=== PATIENT | male | born 1955 | race Caucasian/White ===

== ENCOUNTER 2021-07-20 12:42 | Emergency (ER) | payer MEDICARE, OTHER, SELFPAY ==
--- NOTE | ~2021-07-20 | XR_ITS ---
EXAMINATION: [id number] DATE: 07/20/2021 13:25 INDICATION: Right lateral chest pain. Chest injury. TECHNIQUE: An anteroposterior the chest and 2 views of the right ribs on 4 radiographs were obtained. COMPARISON: Chest 2 views 07/20/2014, chest CT 10/17/2015 FINDINGS: There is chronic marked elevation of right hemidiaphragm. There is mild atelectasis at the lung bases. No pleural effusion or pneumothorax. The heart size is normal. IMPRESSION: 1. No rib fracture. 2. Mild atelectasis at the lung bases. 3. Chronic marked elevation of right hemidiaphragm. Reviewed, dictated and finalized at location A.
[2021-07-20 12:52] VITALS: BP 150/66; PULSE 69; RESP 16; TEMP 36.4; O2SAT 98
--- NOTE | 2021-07-20 13:03 | ED.BACK ---
HPI - Back Pain/Injury General Chief Complaint: Back Pain/Injury Stated Complaint: Fall Injury/Back Pain Time Seen by Provider: 07/20/21 13:03 Source: patient Mode of arrival: ambulatory Limitations: no limitations History of Present Illness HPI Narrative: 65 yo M presents with c/o R sided mid back pain for 6 days. Pt states he was standing on running board of his truck while tryign to attack a magnetic light to top. The magnets released and he fell backwards against a wall. has been taking advil for pain. Thinks pain is improving some but wants to make sure he does not have a fracture. Ambulatory with steady gait. denies SOB. All systems reviewed and negative except as noted above. Related Data Home Medications Medication Instructions Recorded Confirmed amlodipine 10 mg PO DAILY 07/20/21 07/20/21 aspirin [Adult Low Dose Aspirin] 81 mg PO DAILY 07/20/21 07/20/21 atorvastatin 80 mg PO DAILY 07/20/21 07/20/21 losartan 100 mg PO DAILY 07/20/21 07/20/21 Allergies Allergy/AdvReac Type Severity Reaction Status Date / Time codeine Allergy Intermediate wires him Verified 07/20/21 13:05 up Review of Systems Review of Systems: CONSTITUTIONAL: Denies fever, chills, or sweats. EYES: Denies visual changes, redness, or discharge. ENT: Denies rhinorrhea, congestion, sore throat, or otalgia. CARDIOVASCULAR: Denies chest pain, palpitations, or edema. RESPIRATORY: Denies cough or dyspnea. GASTROINTESTINAL: Denies abdominal pain, nausea, vomiting, or diarrhea. GENITOURINARY: Denies dysuria or hematuria. SKIN: Denies rash or itching. MUSCULOSKELETAL: Reports right mid back pain. NEUROLOGIC: Denies headache, numbness, or weakness. PSYCHIATRIC: Denies anxiety or depression. All other systems reviewed are negative, except as documented in HPI. PMFSH Comments At time of signature, agree with nursing past medical, surgical, social and family history. There is no relevant family history pertinent to the presenting complaint. Exam Narrative: GENERAL: This is a well-nourished, well-developed patient, in no apparent distress. HEAD: normocephalic, atraumatic. EYES: PERRL. Sclera clear/white. Vision is grossly intact. EARS: External ears normal, auditory canals clear and without drainage, TMs normal without perforation. Hearing grossly intact. NOSE: External nose normal with no obvious nasal discharge, nares without redness, no rhinorrhea. THROAT: Mucous membranes moist, posterior pharynx clear. NECK: Neck supple, non-tender without lymphadenopathy, masses or thyromegaly. CARDIOVASCULAR: Regular rate and rhythm without murmurs, gallops, or rubs. RESPIRATORY: Clear to auscultation. Breath sounds equal bilaterally. No wheezes, rales, or rhonchi. GASTROINTESTINAL: Abdomen soft, non-tender, nondistended. Bowel sounds are active. No hepato-splenomegaly, or palpable masses. No guarding. SKIN: warm, Dry, intact with no suspicious lesions or rash, good texture and turgor. NEURO: awake, alert, and oriented to person, place and time. There were no obvious focal neurologic abnormalities. EXTREMITIES: No joint tenderness, effusion, or edema noted. No calf tenderness. Negative Homans sign bilaterally. BACK: Tenderness to right mid back with swelling. No bruising noted. No midline tenderness. No CVA tenderness. Back/Spine/Pelvis: Back/spine/pelvis image: 1. tenderness with swelling Course Course Level of Care: Express Care Visit Vital Signs Vital signs: Reviewed MDM - Back Pain/Injury MDM Narrative Medical decision making narrative: Patient is aware of diagnosis, understands and agrees to treatment plan. Anticipatory guidance given. Patient agrees to follow-up as directed and is aware of reasons to seek care at the emergency department. Portions of this record may have been created with voice recognition software Differential Diagnosis Differential diagnosis: Likely lumbar radiculopathy, strain of lumbar region and thoracic back pain Discha
== END 2021-07-20 13:46 | disposition home or self-care (01) ==
PROVIDERS: Emergency Provider Nurse Practitioner Family; PCP Internal Medicine
DX: S30.0XXA Contusion of lower back and pelvis, initial encounter (principal); W19.XXXA Unspecified fall, initial encounter; E78.00 Pure hypercholesterolemia, unspecified; I10 Essential (primary) hypertension
CPT/HCPCS: 71101; 99203; G0463

== ENCOUNTER 2022-08-17 11:02 | Emergency (ER) | payer MEDICARE, OTHER, SELFPAY ==
--- NOTE | ~2022-08-17 | XR_ITS ---
XR ankle LT min 3V 08/17/2022 11:23 Indication: Left ankle pain Procedure: 4 views left ankle Comparison: No prior studies for comparison. Findings: Ankle mortise intact. There is a small osteochondral defect medial aspect of the talar dome . There is polyarticular osteoarthritis. Normal mineralization. No acute fracture or traumatic malali gnment. Impression: 1: No acute fracture. 2: Moderate polyarticular osteoarthritis. 3: Small osteochondral defect medial aspect of the talar dome. Reviewed, dictated and finalized at location B. Impression: 1: No acute fracture. 2: Moderate polyarticular osteoarthritis. 3: Small osteochondral defect medial aspect of the talar dome.
[2022-08-17 11:08] VITALS: BP 133/64; PULSE 70; RESP 20; TEMP 36.4; O2SAT 99
--- NOTE | 2022-08-17 11:15 | ED.LOWEXIN ---
HPI - Extremity Injury (Lower) General Chief Complaint: Extremity Injury, Lower Stated Complaint: Left Ankle Injury Source: patient and RN notes reviewed History of Present Illness HPI Narrative: 58-year-old male presents to urgent care with complaints of a left medial ankle pain and swelling. Patient states 1 week ago a tripped in the rocks causing him to almost fall. Patient states he did not fall to the ground b/c he caught himself on a flagpole. Patient denies any numbness, tingling, or any other injuries including head injury or LOC. Denies any chest pain or shortness of breath. Patient has been taking Tylenol at without relief. Some parts of this dictation were generated by voice recognition software and may contain typographical and/or grammatical inaccuracies. Related Data Home Medications Medication Instructions Recorded Confirmed No Home Medications 08/17/22 08/17/22 Allergies Allergy/AdvReac Type Severity Reaction Status Date / Time codeine Allergy Intermediate wires him Verified 08/17/22 11:17 up Review of Systems Review of Systems: Pertinent positives and pertinent negatives per HPI. PMFSH Comments At the time of my signature, I reviewed and agree with the nursing past medical, surgical, social, and family history. There is no relevant family history pertinent to the patient complaint. Exam Narrative: GENERAL: This is a well-nourished, well-developed patient, in no apparent distress. HEAD: normocephalic, atraumatic. EYES: Sclera clear/white. Vision is grossly intact. EARS: External ears normal, auditory canals clear and without drainage. Hearing grossly intact. NOSE: External nose normal with no obvious nasal discharge, nares without redness, no rhinorrhea. THROAT: Mucous membranes moist, posterior pharynx clear. NECK: Neck supple, non-tender without lymphadenopathy, masses or thyromegaly. CARDIOVASCULAR: Regular rate RESPIRATORY: No respiratory distress. GASTROINTESTINAL: Abdomen soft, non-tender, nondistended. Bowel sounds are active. No hepato-splenomegaly, or palpable masses. No guarding. SKIN: warm, intact with no suspicious lesions or rash, good texture and turgor. NEURO: awake, alert, and oriented to person, place and time. There were no obvious focal neurologic abnormalities. EXTREMITIES: No clubbing or cyanosis. Left medial ankle edematous and mildly tender. Course Course Level of Care: Express Care Visit Vital Signs Vital signs: Vital Signs Temperature 97.5 F L 08/17/22 11:08 Pulse Rate 70 08/17/22 11:08 Respiratory Rate 20 08/17/22 11:08 Blood Pressure 133/64 08/17/22 11:08 Pulse Oximetry 99 08/17/22 11:08 Oxygen Delivery Room Air 08/17/22 11:08 Temperature 97.5 F L 08/17/22 11:08 Pulse Rate 70 08/17/22 11:08 Respiratory Rate 20 08/17/22 11:08 Blood Pressure 133/64 08/17/22 11:08 Pulse Oximetry 99 08/17/22 11:08 Oxygen Delivery Room Air 08/17/22 11:08 Reviewed MDM - Extremity Injury (Lower) MDM Narrative Medical decision making narrative: Use the RICE method at home. May take ibuprofen (Advil, Motrin, Aleve) and/or Tylenol if needed. Follow up with locator specialist. Patient was advised to stay off this ankle as much as possible until he is seen by Ortho MD. Patient states he has crutches at home. Differential Diagnosis Differential diagnosis: Likely ankle sprain and strain, ankle fracture and other (Dislocation) Imaging Data Radiologist's impression: [address] [place] [id number] XRay Report Signed Patient: Karri Main : 1955 MR#: [id number] Age/Sex: 66 / M Acct:[id number] Loc: [facility]? ? ADM Date: 08/17/22Attending Dr: Ordering Physician: Paige Cummins APRN Date of Service: 08/17/22 Procedure(s): XR ankle LT min 3V Accession Number(s): [id number] cc: Omer, Scott Sprague MD; Paige Cummins APRN~ XR ankle L
== END 2022-08-17 11:50 | disposition home or self-care (01) ==
PROVIDERS: Emergency Provider Nurse Practitioner Family; PCP Internal Medicine
DX: S93.402A Sprain of unspecified ligament of left ankle, initial encounter (principal); S96.912A Strain of unspecified muscle and tendon at ankle and foot level, left foot, initial encounter; W18.40XA Slipping, tripping and stumbling without falling, unspecified, initial encounter; E78.00 Pure hypercholesterolemia, unspecified; I10 Essential (primary) hypertension
CPT/HCPCS: 73610; 99213; G0463

== ENCOUNTER 2024-12-25 11:15 | Emergency (ER) | payer MEDICARE, SELFPAY ==
--- NOTE | ~2024-12-25 | XR_ITS ---
CHEST RADIOGRAPH, PA AND LATERAL CLINICAL HISTORY: cough, pain with deep inspiration. . COMPARISON: 07/20/2014. Reference is also made to a CT examination of the chest dated 10/17/2015 TECHNIQUE: PA and lateral views of the chest. FINDINGS Redemonstration of right hemidiaphragmatic elevation with adjacent compressive atelectasis. The remainder of the lungs are clear. The cardiac mediastinal silhouette is unremarkable. IMPRESSION: Elevation of the right hemidiaphragm with adjacent compressive atelectasis. Reviewed, dictated and finalized at location A.
[2024-12-25 11:23] VITALS: BP 137/57; PULSE 63; RESP 20; TEMP 36.7; O2SAT 98
--- NOTE | 2024-12-25 11:37 | ECG_ITS ---
Test Date: 2024-12-25 11:42:36 Measurements Intervals [place] Rate: 59 P: 42 FL: 184 QRS: -3 QRSD: 85 T: 61 QT: 401 QTc: 398 Interpretive Statements SINUS BRADYCARDIA BASELINE ARTIFACT- V6 BORDERLINE ECG No previous ECG available for comparison Electronically Signed On 12-25-2024 11:51:42 CDT by Patrice Freeman D.O.
--- NOTE | 2024-12-25 11:46 | ED.URI ---
HPI - URI/Sore Throat General Chief Complaint: Upper Respiratory Infection Stated Complaint: cough, left lung pain, chest pain Time Seen by Provider: 12/25/24 11:45 Source: patient and RN notes reviewed Mode of arrival: ambulatory Limitations: no limitations History of Present Illness HPI Narrative: 69-year-old male presents Express Care complaining of upper respiratory symptoms for approximately 2-3 weeks. Patient says symptoms started with sinus congestion and a cough he stated most sinus symptoms result every continues to have chest congestion and a cough. She also reports pain with inspiration primarily on his left side. Patient denies any chest pain with exertion or chest pain at rest. Patient has a history right collapsed lung history of a pneumothorax. Patient has been taking [id number] Mucinex with some relief. Patient denies any fevers, body aches, chills, nausea, vomiting, shortness of breath, or any other symptoms. Related Data Home Medications ?Medication ?Instructions ?Recorded ?Confirmed ?Last Taken ?Type amlodipine .ROUTE 12/25/24 Unknown History aspirin 81 mg tablet,delayed 81 mg PO DAILY 12/25/24 Unknown History release (Adult Low Dose Aspirin) atorvastatin .ROUTE 12/25/24 Unknown History losartan .ROUTE 12/25/24 Unknown History Allergies Allergy/AdvReac Type Severity Reaction Status Date / Time codeine Allergy Intermediate wires him Verified 12/25/24 11:30 up Review of Systems Review of Systems: CONSTITUTIONAL: Denies fever, chills, or sweats. EYES: Denies visual changes, redness, or discharge. ENT: Denies rhinorrhea, sore throat, or otalgia. Positive for congestion CARDIOVASCULAR: Denies chest pain, chest pain with exertion, lightheadedness, dizziness palpitations, or edema. RESPIRATORY: Positive for cough and pain with inspiration. Negative for dyspnea or wheezing. GASTROINTESTINAL: Denies abdominal pain, nausea, vomiting, or diarrhea. GENITOURINARY: Denies dysuria or hematuria. SKIN: Denies rash or itching. MUSCULOSKELETAL: Denies back pain, joint pain, or myalgia. NEUROLOGIC: Denies headache, numbness, or weakness. PSYCHIATRIC: Denies anxiety or depression. All other systems reviewed are negative, except as documented in HPI. [facility] Comments At the time of my signature, I reviewed and agree with the nursing past medical, surgical, social, and family history. There is no relevant family history pertinent to the patient complaint. Exam Narrative: GENERAL: This is a well-nourished, well-developed adult, in no apparent distress. They are non ill-appearing, nontoxic appearing. HEAD: normocephalic, atraumatic. EYES: Sclera clear/white. Conjunctiva normal. Vision is grossly intact. Extraocular movements intact EARS: External ears normal, auditory canals clear and without drainage, TMs normal without perforation. Hearing grossly intact. NOSE: External nose normal with no obvious nasal discharge, nasal turbinates erythematous bilaterally, no rhinorrhea. THROAT: Mucous membranes moist, posterior pharynx clear, without erythema or swelling. Uvula midline. Postnasal drip present. NECK: Neck supple, non-tender without lymphadenopathy, masses or thyromegaly. CARDIOVASCULAR: Regular rate and rhythm without murmurs, gallops, or rubs. RESPIRATORY: Clear to auscultation. Breath sounds equal bilaterally. No wheezes, rales, or rhonchi. Respiratory rate normal, respiratory effort nonlabored, no respiratory distress SKIN: warm, Dry, intact with no suspicious lesions or rash, good texture and turgor. NEURO: awake, alert, and oriented to person, place and time. There were no obvious focal neurologic abnormalities. EXTREMITIES: No joint tenderness, effusion, or edema noted. BACK: Nontender without deformity. No CVA tenderness. Course Course Emergency Course: Portions of this record may have been created with voice recognition software Level of Care: Express Care Visit Vital Signs Vital signs: Vital Signs Temperature 98.1 F 12/25/24 11:23 Pulse Rate 63 12/25/24 11:23 Respiratory Rate 20 12/25/24 11:23 Blood Pressure 137/57 L 12/25/24 11:23 Pulse Oximetry 98 12/25/24 11:23 Oxygen Delivery Room Air 12/25/24 11:23 Temperature 98.1 F 12/25/24 11:23 Pulse Rate 63 12/25/24 11:23 Respiratory Rate 20 12/25/24 11:23 Blood Pressure 137/57 L 12/25/24 11:23 Pulse Oximetry 98 12/25/24 11:23 Oxygen Delivery Room Air 12/25/24 11:23 Reviewed MDM - URI/Sore Throat MDM Narrative Medical decision making narrative: EKG sinus bradycardia with no ischemic findings. Chest x-ray reveals elevation right hemidiaphragm adjacent compressive atelectasis patient is a chronic finding for this patient. Otherwise no other acute cardiopulmonary findings. [place] heart score 1. Low suspicion for CAD. Pain is reproducible with deep inspiration. Patient is chest pain-free currently. Patient likely has a bacterial sinusitis given length of symptoms. Will prescribe Augmentin. Discussed physical exam findings. Advised supportive measures and signs/symptoms to go to the ER. Pt is appropriate for outpt treatment and f/u. Differential Diagnosis Differential diagnosis: Likely upper respiratory infection, sinusitis, bronchitis and pharyngitis Imaging Data Radiologist's impression: ITS Impressions Chest X-Ray 12/25/24 12:06 IMPRESSION: Elevation of the right hemidiaphragm with adjacent compressive atelectasis. ECG Data EKG #1: ECG completion date: 12/25/24 ECG completion time: 11:42 Prior ECG tracings: not available for review EKG Interpretation: normal rate, bradycardia, sinus rhythm, no ST changes, normal QRS, normal QT, NL axis and no acute changes Critical Care Time Critical Care Time Critical Care Time: No Discharge Plan Discharge Clinical Impression: Sinusitis Qualifiers: Sinusitis location: unspecified location Chronicity: acute Recurrence: non-recurrent Qualified Code(s): J01.90 - Acute sinusitis, unspecified Patient Disposition: Home Condition: Stable Instructions: Antibiotic Form, Sinusitis (ED) Additional Instructions: Your EKG shows no signs of a heart attack. Your Chest x-ray shows no acute cardiopulmonary findings. Take the antibiotics as directed and complete the course even if you start to feel better. You may use a Neti pot saline rinse 3 times a day with lukewarm distilled water You may take Tylenol or ibuprofen as needed for pain or fevers. Fall instruction on the bottle. Use a humidifier or vaporizer at night. Drink plenty of water. 8-10 glasses per day. Use flonase 2 times per day for 5 days then as needed Take mucinex 2 times per day and be sure to take with 8oz of water. Follow up with Primary provider in 3-5 days Please go to the ER if he develops any shortness of breath, difficulty breathing, chest pains, nausea, vomiting, left arm pain, jaw pain, chest pain with exertion, worsening symptoms, or any other concerns Patient Language: Malaysian Prescriptions: New amoxicillin-pot clavulanate 875-125 mg tablet 1 tablet PO Q12H 7 Days Qty: 14 0RF No Action losartan .ROUTE atorvastatin .ROUTE amlodipine .ROUTE aspirin [Adult Low Dose Aspirin] 81 mg tablet,delayed release (DR/EC) 81 mg PO DAILY Follow-up/Referrals: Omer,Scott Sprague MD [Primary Care Provider] - Time of Disposition: 12:21
--- OUTSIDE RECORDS SUMMARY | 2024-12-25 12:50 | XMS_ITS | Clinical Summary ---
Author Organization [facility] Building A Address [address] [place] [address] Care Team Providers Care Blood Bank Coordinator Name Role Phone Scott Tello MD Primary Care Provider + Allergies Active Allergy Reactions Criticality Noted Date Comments Codeine Anaphylaxis High 02/06/2014 Medications atorvastatin (LIPITOR) 80 mg tablet Take 80 mg by mouth daily with breakfast. 8 Active amLODIPine (NORVASC) 10 mg tablet Take 10 mg by mouth daily with breakfast. 8 Active irbesartan (AVAPRO) 150 mg tablet Take 150 mg by mouth daily with breakfast. 8 Active cholecalciferol (cholecalcifero l) 400 unit capsule Take 400 Units by mouth daily with breakfast. Active ofloxacin (OCUFLOX) 0.3 % ophthalmic solution Administer 1 drop into the right eye 4 (four) times a day. 4 times a day (when you wake up, lunch, dinner, bedtime) 5 mL 9 Active Additional Information Patient not taking.Reported on 07/11/2018 ofloxacin (OCUFLOX) 0.3 % ophthalmic solution Administer 1 drop into the left eye 4 (four) times a day. 4 times a day (when you wake up, lunch, dinner, bedtime) 5 mL 9 Active Additional Information Patient not taking.Reported on 07/11/2018 prednisoLONE acetate (PRED FORTE) 1 % ophthalmic suspension Administer 1 drop into both eyes 2 (two) times a day. 5 mL 9 Active Additional Information Patient not taking.Reported on 08/15/2018 Active Problems Problem Noted Date Diagnosed Date Pseudophakia, left eye 05/17/2018 Overview (05/17/2018): Added automatically from request for surgery [id number] Pseudophakia, right eye 05/12/2018 BMI 33.0-33.9,adult 04/24/2018 Assessment & Plan (04/24/2018 10:20 AM PARENT TRAINER): Weight loss counseling provided for 10 min. Lifestyle change and diet modification were discussed with the patient in detail. Nocturnal hypoxia 12/15/2017 Assessment & Plan (12/15/2017 7:48 PM CDT): He has all clinical features of obstructive sleep apnea including retrognathia and Mallampati score class 4. He also reports loud snoring. We will perform an screening over an overnight oximetry. 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 Chest x-ray again has shown elevated right hemidiaphragm. This is a chronic process and it was detected for the 1st time about 10 years ago. PFT has shown mild restrictive lung disease which could be due to diaphragm dysfunction. Six min walk test has shown no desaturation. no further investigation or intervention is recommended at this time. A follow- up visit was arranged in 3 months. Exertional shortness of breath 12/01/2017 Assessment & Plan (11/06/2018 7:01 AM CDT): He reports significant improvement in exertional shortness of breath. He denies any cough, chest pain or shortness of breath. He denies any cough or chest pain. PFT in December 2017 has shown: 1. No evidence of asthma. 2. Mild restrictive lung disease secondary to elevated right hemidiaphragm. Assessment & Plan (04/24/2018 10:19 AM PARENT TRAINER): He reports significant improvement in exertional shortness of breath. He denies any cough, chest pain or shortness of Breath. PFT has shown: 1. No evidence of asthma. 2. Mild restrictive lung disease secondary to elevated right hemidiaphragm. We will repeat PFT in 1 year. Assessment & Plan (12/22/2017 5:43 PM CDT): Today he reports a moderate improvement in exertional shortness of breath. He denies any cough or chest pain. Pulmonary function testing has shown no evidence of asthma. Mild restrictive lung disease is due to elevated right hemidiaphragm. No more investigation or intervention is recommended at this time. We will follow the patient in 3 months. Assessment & Plan (12/01/2017 5:07 PM CDT): Could be due to multiple pulmonary problems We will proceed with pulmonary function testing, 6 min walk test, CBC and BMP. Chest x-ray also was arranged. He may also need respiratory muscle strength testing and echocardiogram. Elevated diaphragm 12/01/2017 Assessment & Plan (11/06/2018 7:02 AM CDT): Chest x-ray has shown elevated right hemidiaphragm. He has had this problem for many years. It was detected for the 1st time about 10 years ago on chest x-ray. Assessment & Plan (04/24/2018 10:21 AM PARENT TRAINER): Chest x-ray has shown elevated right hemidiaphragm. He has had this problem for many years. It was detected for the 1st time about 10 years ago on chest x-ray. No further investigation is needed at this time. Will repeat PFT and chest x-ray in 1 year. Assessment & Plan (12/15/2017 7:51 PM CDT): Follow-up chest x-ray again has shown elevated right hemidiaphragm which is an old problem. It was detected for the 1st time about 10 years ago on chest x-ray. Assessment & Plan (12/01/2017 5:06 PM CDT): Chest CT has shown elevation of the right hemidiaphragm. Cause has not been identified yet. It was detected about 10 years ago on chest x-ray. We will repeat chest x-ray in two views. Obstructive sleep apnea 12/01/2017 Assessment & Plan (12/22/2017 5:54 PM CDT): The patient has all clinical features of obstructive sleep apnea including Loud snoring, daytime fatigue, retrognathia and Mallampati score class 4. We will perform an overnight oximetry to rule out nocturnal hypoxia. We will also consider sleep study to rule out SCAR. Assessment & Plan (12/01/2017 5:05 PM CDT): He has all clinical features of obstructive sleep apnea. He has retrognathia and Mallampati score is class 4. He also gives a history of loud snoring. He needs sleep study as an outpatient in the future. Non-seasonal allergic rhinitis 12/01/2017 Assessment & Plan (11/06/2018 7:02 AM CDT): We will continue with azelastine nasal spray. Assessment & Plan (04/24/2018 10:15 AM PARENT TRAINER): We will discontinue fluticasone nasal spray because of side effects. Today he was started on azelastine nasal spray. Assessment & Plan (12/15/2017 7:49 PM CDT): We will continue with fluticasone nasal spray. Assessment & Plan (12/01/2017 4:59 PM CDT): He has postnasal drip and nasal congestion consistent with rhinitis. He was started on fluticasone nasal spray. 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 cataract of right eye 05/13/2018 07/11/2018 Overview (05/13/2018): Added automatically from request for surgery [id number] Mixed type age-related cataract, left eye 05/12/2018 08/15/2018 Lesion of eyelid 04/15/2015 08/15/2018 Surgical History Surgery Date Site/Laterality Comments KNEE ARTHROSCOPY 05/10/2014 - 05/09/2015 Arthroscopy knee KNEE SURGERY Right Knee Surgery prior to 2014 OK TUBE THORACOSTOMY INCLUDE S WATER SEAL 05/10/2011 - 05/09/2012 Chest Tube Insertion - (Added by Conv) FINGER SURGERY multiple TOE SURGERY 08/19/2016 Left arthroplasty L 2nd toe CATARACT EXTRACTION W/ INTRAOCULAR LENS IMPLANT 06/02/2018 Right CARDIAC CATHETERIZATION 05/10/2013 - 05/09/2014 mild to mod non-obstructive CAD Medical History Medical History Date Comments Hyperlipidemia Hyperlipidemia Personal history of other di seases of the musculoskeletal system and connective tissue History of gout - (Added by TW Conv) 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 - (Added by TW Conv) Hyperuricemia without signs of inflammatory arthritis and tophaceous disease Hyperuricemia - (Added by TW Conv) History of recurrent pneumonia H istory of pneumonia - (Added by TW Conv) Pneumothorax Pneumothorax, le ft - (Added by Conv) Personal history of healed t raumatic fracture History of fracture of rib - (Added by TW Conv) Hypertension CAD (coronary artery disease) pe r OSH record review: mild to mod non-obstructive CAD 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 Epistaxis s/p cauterizatio n 05/2018 Family History Medical History Relation Name Comments Bone cancer Brother 1 Bone cancer - ( Added by Conv) Cancer Brother 1 Diabetes Brother 1 Hypertension Brother 1 Emphysema Brother 2 Family history of emphysema - (Added by Conv) Cancer Father Cataracts Father Coronary artery disease Father CABG Hypertension Father Prostate cancer Father Cancer -pros gordillo; Cause of : Cancer -prostate/Family history of prostate cancer - (Added by Conv) Stroke Father fatal Emphysema Mother Family history of emphysema - (Added by TW Conv) Heart failure Mother Congestive hea rt failure; Cause of : Congestive heart failure Relation Name Status Comments Brother 1 Brother 2 Father Mother Social History Tobacco Use Types Packs/Day Years Used Date Smoking Tobacco: Never Smokeless Tobacco: Never Alcohol Use Standard Drinks/Week Comments No 0 (1 standard drink = 0.6 oz pur e alcohol) Sex and Gender Information Value Date Recorded Sex Assigned at Not on file Legal Sex Male 11:56 PM PARENT TRAINER Gender Identity Not on file Sexual Orientation Not on file 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 Not on file Not on file Not on file Obstetrics History Last Filed Vital Signs Vital Sign Reading Time Taken Comments Blood Pressure 116/70 10/24/2018 8:01 AM CDT Pulse 54 10/24/2018 8:01 AM CDT Temperature 36.5 C (97.7 F) 10/24/2018 8:01 AM CDT Respiratory Rate 19 10/24/2018 8:01 AM CDT Oxygen Saturation 96% 10/24/2018 8:01 AM CDT Inhaled Oxygen Concentration - - Weight 115.7 kg (255 lb) 10/24/2018 8:01 AM CDT Height 185.4 cm (6' 1) 10/24/2018 8:01 AM CDT Body Mass Index 33.64 10/24/2018 8:01 AM CDT Plan of Treatment Not on file Medical Devices Implanted Type Area Skein Washer Device Identifier Shelf Expiration Date Model / Serial / Lot [employer] Zcb00 20.5d Tecnis Protec 6mm 13mm 1 Piece Anterior Aspheric Square Edge Uv - [id number] - [id number] Implanted:Qty: 1 on 06/02/2018 by Kylie Chandler MD PhD at [facility] Lens Right: Eye [employer] [id number] 04/03/2021 [id number] 20.5D / [id number] / [employer] [id number] 19.5 Tecnis Optiedge 6mm 13mm 3 Piece Anterior Aspheric Monofocal Uv - [id number] - [id number] Implanted:Qty: 1 on 06/10/2018 by Kylie Chandler MD PhD at [facility] Lens Left: Eye [employer] [id number] 05/05/2022 [id number] 19.5 / [id number] / Description:[id number] 19.5D Insurance [facility] MEDICARE Inktd [facility] MEDICARE Care Teams Blood Bank Coordinator Relationship Specialty Start Date End Date Scott Tello MD PCP - General Internal Medicine 11/22/17
--- OUTSIDE RECORDS SUMMARY | 2024-12-25 12:50 | XMS_ITS | Clinical Summary ---
Author Organization [facility] Address [address] [place] [address] Phone Care Team Providers Care Leadite Man Name Role Phone Scott Tello MD Primary Care Provider [phone] Micha Ríos MD Unavailable [phone] Kylie Chandler MD Unavailable [phone] Isaias Andre DPM Unavailable [phone] Tha Bolden MD Unavailable [facility] yoder APRN, [employer] Unavailable Jayant Sosa MD Unavailable [phone] Allergies Active Allergy Reactions Criticality Noted Date Comments Codeine Anaphylaxis 02/06/2014 Indomethacin Other (see Comments) 12/19/2018 Serum bilirubin raised Medications amLODIPine (NORVASC) 10 MG Tablet Take by mouth every morning. Active atorvastatin (LIPITOR) 80 MG Tablet Take by mouth daily. Active aspirin EC 81 MG Tablet Delayed Response TAKE ONE TABLET BY MOUTH ONCE A DAY 01/25/2019 Active losartan (COZAAR) 100 MG Tablet every morning. 10/19/2019 Active Active Problems Problem Noted Date Diagnosed Date Venous insufficiency of both lower extremities 0 12/01/2023 Sensorineural hearing loss, bilateral 07/12/2023 Carotid stenosis, asymptomatic, left 07/01/2020 Amaurosis fugax 07/01/2020 BMI 33.0-33.9,adult 04/24/2018 Overview (08/16/2018): Last Assessment & Plan: Weight loss counseling provided for 10 min. Lifestyle change and diet modification were discussed with the patient in detail. Nonrheumatic aortic valve insufficiency 04/22/20 Non-rheumatic mitral regurgitation 04/22/2018 Non-seasonal allergic rhinitis 12/01/2017 Overview (08/16/2018): Last Assessment & Plan: We will discontinue fluticasone nasal spray because of side effects. Today he was started on azelastine nasal spray. Obstructive sleep apnea 12/01/2017 Overview (08/16/2018): Last Assessment & Plan: The patient has all clinical features of obstructive sleep apnea including Loud snoring, daytime fatigue, retrognathia and Mallampati score class 4. We will perform an overnight oximetry to rule out nocturnal hypoxia. We will also consider sleep study to rule out SCAR. Mixed hyperlipidemia 12/24/2014 Diverticulosis 05/10/2014 Elevated hemidiaphragm Overview (04/24/2015): Right--paralyzed on sniff test Hypertension, essential ASHD (arteriosclerotic heart disease) Gout Resolved Problems Problem Noted Date Diagnosed Date Resolved Date Colon polyps 03/14/2024 07/13/2024 Immunizations Immunization Administration Dates Next Due COVID-19, MRNA, LNP-S, BIVAL ENT , PFIZER, 30 MCG/0.3 ML (12+ Y/O) 02/23/2022 Covid-19, Mrna, Lnp-s, Pf, 30 Mcg/0.3 Ml Dose (P fizer) 06/29/2020,06/09/2020 Covid-19, Mrna, Lnp-s, Pf, 3 0 Mcg/0.3 Ml Dose, Cristiano-sucrose (Pfizer tom top) 09/01/2021 Influenza Vaccine greater than 3 yrs 02/08/2019 Influenza Vaccine, Quadrivalent, PF 04/14/2018 Influenza, High-dose, Quadrivalent 02/15/2023, Influenza, Quadrivalent, Adjuvanted 02/23/2022,1 06/11/2020 Influenza, high-dose, trivalent, PF 01/24/2024 Pneumococcal PCV, Unspecified Formulation 2011 Pneumococcal Vaccine - 13 Valent 06/27/2019,08/0 10/2016 Pneumococcal Vaccine Adult - 23 Valent Pneumococcal conjugate PCV20 , polysaccharide [id number] conjugate, adjuvant, PF 02/10/2024 RSV, Bivalent, Protein Subun it Rsvpref, Diluent Reconstit (Abrysvo) 01/04/2024 TDAP Vaccine 06/11/2017 Zoster Vaccine Recombinant 03/21/2024,01/04/2024 Family History Medical History Relation Name Comments Cancer Brother 1 Liver Diabetes Brother 1 Cancer Brother 2 Bone Diabetes Brother 2 Heart Attack Father Stroke Father Heart Disease Paternal Uncle Relation Name Status Comments Brother 1 Brother 2 Father Mother Paternal Uncle Social History Tobacco Use Types Packs/Day Years Used Date Smoking Tobacco: Never Smokeless Tobacco: Never Tobacco Cessation:Counseling Given: Not Answered Alcohol Use Standard Drinks/Week Comments No 0 (1 standard drink = 0.6 oz pur e alcohol) [facility] Voltariities Answer Date Recorded In the past 12 months has [employer], gas, oil, or water [employer] threatened to shut off services in your home? Patient declined 07/11/2024 Social Connection and Isolation Panel Answer Date Recorded In a typical week, how many times do you talk on the phone with family, friends, or neighbors? Patient declined 07/11/2024 How often do you get togethe r with friends or relatives? Patient declined 07/11/2024 How often do you attend mu-ism or pentecostalism serv ices? Patient declined 07/11/2024 Do you belong to any clubs o r organizations such as mu-ism groups, unions, fraternal or athletic groups, or school groups? Patient declined 07/11/2024 How often do you attend meet ings of the clubs or organizations you belong to? Patient declined 07/11/2024 Are you , , di vorced, , never , or living with a partner? Patient declined 07/11/2024 AUDIT-C Answer Date Recorded Q1: How often do you have a drink containing alc ohol? Patient declined 07/11/2024 Q2: How many drinks containi ng alcohol do you have on a typical day when you are drinking? Patient declined 07/11/2024 Q3: How often do you have si x or more drinks on one occasion? Patient declined 07/11/2024 Overall Financial Resource Strain (CARDIA) Answe r Date Recorded How hard is it for you to pa y for the very basics like food, housing, medical care, and heating? Patient declined 07/11/2024 PHQ-2 Answer Date Recorded Total Score - Questions 1-9 0 10/2024 [facility] - Occupational Stress Questionnaire Answer Date Recorded Do you feel stress - tense, restless, nervous, or anxious, or unable to sleep at night because your mind is troubled all the time - these days? Patient declined 07/11/2024 Exercise Vital Sign Answer Date Recorde d On average, how many days pe r week do you engage in moderate to strenuous exercise (like a brisk walk)? 7 days On average, how many minutes do you engage in exercise at this level? Patient declined 07/11/2024 Hunger Vital Sign Answer Date Recorded Within the past 12 months, y ou worried that your food would run out before you got the money to buy more. Patient declined Within the past 12 months, t he food you bought just didn't last and you didn't have money to get more. Patient declined 08/2024 PRAPARE - Transportation Answer Date Re corded In the past 12 months, has l ack of transportation kept you from medical appointments or from getting medications? Patient declined 07/11/2024 In the past 12 months, has l ack of transportation kept you from meetings, work, or from getting things needed for daily living? Patient declined 07/11/2024 Housing Stability Vital Sign Answer Christiano e Recorded In the last 12 months, was t here a time when you were not able to pay the mortgage or rent on time? Patient declined 07/12/19 25 Number of Times Moved in the Last Year Not on fi le 07/11/2024 At any time in the past 12 m [facility], were you homeless or living in a [facility] (including now)? Patient declined 07/11/2024 Sexually Active Control Partners Comments Not Currently Sex and Gender Information Value Date Recorded Sex Assigned at Not on file Legal Sex Male 10:16 PM CDT Gender Identity Not on file Sexual Orientation Not on file Last Filed Vital Signs Vital Sign Reading Time Taken Comments Blood Pressure 110/68 07/13/2024 8:02 AM GAME ATTENDANT Pulse 54 07/13/2024 8:02 AM GAME ATTENDANT Temperature 36.2 C (97.1 F) 07/13/2024 8:02 AM GAME ATTENDANT Respiratory Rate 20 07/13/2024 8:02 AM GAME ATTENDANT Oxygen Saturation 97% 07/13/2024 8:02 AM GAME ATTENDANT Inhaled Oxygen Concentration - - Weight 119.1 kg (262 lb 8 oz) 07/13/2024 8:02 AM GAME ATTENDANT Height 188 cm (6' 2) 07/13/2024 8:02 AM GAME ATTENDANT Body Mass Index 33.7 07/13/2024 8:02 AM GAME ATTENDANT Plan of Treatment Upcoming Encounters Date Type Department Care Team (Late st Contact Info) Description 07/17/2025 8:00 AM CDT Office Visit [facility] - Primary Care - [place] [address] [place] [address] Scott Tello MD [address] [place], [place] [id number] Health Maintenance Due Date Last Done Comments Cologuard 1998 Immunochemical Fecal Occult Blood 1998 SARS-COV-2 Immunization ( season) 2024 01/24/2024, 02/19/2023, 02/23/2022, Additional history exists Influenza Immunization (#1) 01/08/202501/08, 02/15/2023, 02/23/2022, Additional history exists Colonoscopy 03/14/2027 03/14/2024, 07/27/2014 Colorectal Cancer Screening 03/14/2027 Td Immunization Every 10 Years (Adults With 1 Tdap) 06/11/2027 06/11/2017 PSA Discussion Discontinued 06/27/2019 Hepatitis C Virus (HCV) Screening Completed 07/12/2023, 07/29/2017 Respiratory Syncytial Virus (RSV) Immunization (Adult) Completed 01/04/2024 Pneumococcal Immunization (50+ years) Completed 02/10/2024, 07/07/2021, 06/27/2019, Additional history exists Pneumococcal Immunization Combined Discontinued 02/10/2024, 07/07/2021, 06/27/2019, Additional history exists Zoster Immunization Completed 03/21/2024, Hepatitis B Immunization Aged Out No longer eligible based on patient's age to complete this topic Human Papillomavirus (HPV) Immunization Aged Out No longer eligible based on patient's age to complete this topic Meningococcal Immunization (ACWY) Aged Out No longer eligible based on patient's age to complete this topic Rotavirus Immunization Aged Out No lo nger eligible based on patient's age to complete this topic Medical Devices Implanted Type Area Pet Handler Device Identifier Shelf Expiration Date Model / Serial / Lot [employer] Pip Allograft Implanted:Qty: 1 on 08/19/2016 by Isaias Andre DPM at [facility] [employer] 01/16/2018 [id number] / / [id number] Procedures Procedure Name Priority Date/Time Associated Diagnosis Comments HEPATITIS C ANTIBODY Routine 07/12/2023 8:26 AM GAME ATTENDANT Encounter for hepatitis C screening test for low risk patient COLONOSCOPY Routine 07/27/2014 from Last 3 Months or Most Recently Relevant to Health Maintenance Results * HEPATITIS C ANTIBODY (07/12/2023 8:26 AM GAME ATTENDANT) hepatitis C antibody 0.10 <1 S/CO [facility] ARCH [id number] 07/12/2023 10:41 PM GAME ATTENDANT [facility] Comment: Signal/Cutoff ratio < 0.79 is Nondetected Signal/Cutoff ratio 0.80-0.99 is Grayzone Signal/Cutoff ratio > 0.99 is Detected Supplemental assays are recommended if signal/cutoff ratio is >/=1.00. Signal/cutoff ratio result >/= 5.00 is 97% predictive of positivity for recombinant immunoblot assay (RIBA) and will be reported to the [place] Department of Public Health as required. Blood Venipuncture / Unknown 07/12/2023 8:26 AM GAME ATTENDANT 07/12/2023 8:26 AM GAME ATTENDANT us Scott Tello MD CHEMISTRY ORDERABLES Charity l Result [facility] [address] [place] [address], [place] * HM COLONOSCOPY (07/27/2014) us Hollis Lopez DO PROCEDURE/MINOR SURGICAL ORDERA BLES Final Result from Last 3 Months or Most Recently Relevant to Health Maintenance Insurance MEDICARE C [employer] Care Teams Leadite Man Relationship Specialty Start Date End Date Scott Tello MD [address] [place] [address] PCP - General Internal Medicine 06/11/17 Micha Rí[place] [address] [facility] [address] [place] [address] Consulting Physician Cardiology 06/11/17 Kylie Chandler MD [address] [facility] [address] [place] [address] Ophthalmology 06/27/19 Isaias Andre DPM [address] [place] [address] Consulting Physician Podiatry 06/27/19 Tha Bolden MD [address] [place] [address] Consulting Physician Orthopaedic Sports Medicine 06/27/19 Rachel Chaidez APRN, HELICOPTER SPECIALIST [address] [place] [address] Nurse Practitioner Gastroenterology 02/23/24 [place] [address] [address] [place] [address] Consulting Physician Cardiology 06/21/24
--- OUTSIDE RECORDS SUMMARY | 2024-12-25 12:50 | XMS_ITS | Encounter Summary ---
Author Organization [facility] Address [address] [place] [address] Care Team Providers Care Polisher Numeral Name Role Phone Scott Tello MD Primary Care Provider [phone] Reason for Referral * Radiology Services (Routine) - Authorized Specialty Diagnoses / Procedures Referred By Silvia t Referred To Contact Diagnoses Chronic venous htn w inflammation of bilateral low extrm Carotid stenosis, asymptomatic, left Bilateral carotid artery stenosis Nonrheumatic aortic valve insufficiency Procedures US CAROTID DOPPLER Susi Saucedo FNP [address] [address] [facility] [address] [place] [address] Phone: tel: fax: Referral ID Status Reason Start Date Expiration Date V isits Requested Visits Authorized [id number] Authorized 12/04/2024 01/04/2026 1 1 Reason for Visit * Reason Onset Date Comments Carotid ultrasound results 11/30/2024 Encounter Details Date Type Department Care Team (Late st Contact Info) Description 11/30/2024 Results Follow-Up [facility] Heart and Vascular - [address] [facility] [address] [address] [address] [facility] [address] [place] [address] Susi Saucedo FNP [address] [facility] [address] [place] [address] US CAROTID DOPPLER Social History Tobacco Use Types Packs/Day Years Used Date Smoking Tobacco: Never Smokeless Tobacco: Never Alcohol Use Standard Drinks/Week Comments No 0 (1 standard drink = 0.6 oz pur e alcohol) Sex and Gender Information Value Date Recorded Sex Assigned at Not on file Legal Sex Male 5:45 PM CDT Gender Identity Not on file Sexual Orientation Not on file documented as of this encounter Miscellaneous Notes * Result Encounter Note - Susi Saucedo FNP - 11/30/2024 4:30 PM CDT Ml sending this to you as FYI. He has significant left carotid stenosis that has been stable for the last few years. If he does not want to follow with Dr. Sosa, will need to get yearly carotidultrasounds done with Dr. Ríos. * Telephone Encounter - Dolores Estrella - 11/30/2024 4:17 PM CDT Sent portal message regarding Carotid ultrasound results. It appears Pt canceled upcoming OV on 12/04 due to comment stating: pt stated he is not seeing results and to cancel * Telephone Encounter - Dolores Estrella - 11/30/2024 4:14 PM CDT ----- Message from Susi Saucedo sent at 11/30/2024 4:03 PM CDT ----- Carotid US stable with moderate left stenosis. Continue current medications - looks like he was scheduled to see Smyth, but has not been set up for follow up with us - please have him scheduled for yearly visit. Thank you! ----- Message ----- From: Stl Incoming Ancillary Results And Orders To Cupid Sent: 11/30/2024 12:13 PM CDT To: Jayant Sosa MD documented in this encounter Plan of Treatment Upcoming Encounters Date Type Department Care Team (Late st Contact Info) Description 08/17/2025 1:15 PM CDT Office Visit [facility] Heart and Vascular - [address] [facility] [address] [address] [address] [facility] [address] [place] [phone] [place] [address] [address] [facility] [address] [place] [address] Scheduled Orders Name Type Priority Associated Diagnoses Orde r Schedule US CAROTID DOPPLER Imaging Routine Chronic venous htn w inflammation of bilateral low extrm Carotid stenosis, asymptomatic, left Bilateral carotid artery stenosis Nonrheumatic aortic valve insufficiency Expected: 12/03/2025, Expires: 06/06/2026 documented as of this encounter Visit Diagnoses Diagnosis Chronic venous htn w inflammation of bilateral low extrm- Primary Carotid stenosis, asymptomatic, left Bilateral carotid artery stenosis Occlusion and stenosis of multiple and bilateral precerebral arteries without mention of cerebral infarction Nonrheumatic aortic valve insufficiency Aortic valve disorders documented in this encounter Care Teams Polisher Numeral Relationship Specialty Start Date End Date Scott Tello MD [address] [place] [address] PCP - General Internal Medicine 04/21/18 documented as of this encounter
--- OUTSIDE RECORDS SUMMARY | 2024-12-25 12:50 | XMS_ITS | Clinical Summary ---
Author Organization [facility] [address] Address [address] [place] [address] Care Team Providers Care Kier Pleater Name Role Phone Scott Tello MD Primary Care Provider [phone] Allergies Active Allergy Reactions Criticality Noted Date Comments Codeine Unknown Indomethacin Other (See Comments) 12/19/2018 Serum bilirubin raised Medications aspirin (ECOTRIN EC) 81 mg Tablet, Delayed Release (E.C.) Take 81 mg by mouth daily. Active atorvastatin (LIPITOR) 80 mg tablet TAKE 1 TABLET BY MOUTH ONCE DAILY 90 Tablet 3 9 Active losartan (COZAAR) 50 mg tablet Take 50 mg by mouth daily. Active SIGVARIS COMPRESSION SOCKS [id number] x 1 1 Each 12/15/2023 4:56 PM CDT 4 Active cetirizine (ZyrTEC) 10 mg tablet Take 1 Tablet by mouth daily. 5 Active amLODIPine (NORVASC) 5 mg tablet Take 5 mg by mouth daily. 5 This is a decrease in dose. Active Active Problems Patient Care Coordination No te Formatting of this note migh t be different from the original. Fairing Man - Dr. Micha Ríos [facility] Heart and Vascular - [address] [facility] Vascular Care - Dr. Jayant Sosa MD, [facility], [facility] Heart and Vascular - [address] [facility] Problem Noted Date Diagnosed Date Venous hypertension of lower extremity, bilatera l 12/01/2023 Carotid stenosis, asymptomatic, left 07/01/2022 Hypertension 04/22/2018 Non-rheumatic mitral regurgitation 04/22/2018 Nonrheumatic aortic valve insufficiency 04/22/20 Aortic valve disorder 12/24/2014 Coronary atherosclerosis of [place] coronary durga ry 12/24/2014 Mitral valve disease 12/24/2014 Abnormal electrocardiography 12/24/2014 Pure hypercholesterolemia 12/24/2014 Encounters Date Type Department Care Team Description 12/13/2024 External Device Data STL ABSTRACTION Provider, Abstract 11/30/2024 10:02 AM CDT - 11/30/2024 11:59 PM CDT Hospital Encounter [facility] [address] [facility] [address] [place] [address] Jayant Sosa MD Discharge Disposition: Home or Self Care 11/30/2024 Results Follow-Up [facility] and Vascular - [address] [facility] [address] [facility] [address] [place] [address] Susi Saucedo FNP US CAROTID DOPPLER 11/22/2024 External Device Data STL ABSTRACTION Provider, Abstract 11/22/2024 External Device Data STL ABSTRACTION Provider, Abstract 11/21/2024 External Device Data STL ABSTRACTION Provider, Abstract 10/24/2024 External Device Data STL ABSTRACTION Provider, Abstract 09/28/2024 External Device Data STL ABSTRACTION Provider, Abstract from Last 3 Months Family History Medical History Relation Name Comments Coronary Artery Disease Father Hypertension Mother Stroke Mother Relation Name Status Comments Father Mother Social History Tobacco Use Types [...] Sign Reading Time Taken Comments Blood Pressure 108/66 09/18/2024 1:00 PM CDT Pulse 57 09/18/2024 1:00 PM CDT Temperature 36.2 C (97.1 F) 07/11/2024 2:16 PM [employer]ER Respiratory Rate - - Oxygen Saturation 96% 09/18/2024 1:00 PM CDT Inhaled Oxygen Concentration - - Weight 112.5 kg (248 lb) 09/18/2024 1:00 PM CDT Height 188 cm (6' 2) 09/18/2024 1:00 PM CDT Body Mass Index 31.84 09/18/2024 1:00 PM CDT Plan of Treatment Upcoming Encounters Date Type Department Care Team (Late st Contact Info) Description 08/17/2025 1:15 PM CDT Office Visit [facility] and Vascular - [address] [facility] [address] [address] [facility] [address] [place] [address] Micha Rí[place] [address] [facility] [address] [place] [address] Health Maintenance Due Date Last Done Comments FIT-DNA Q 3 years 1998 FIT/FOBT Q 1 year 1998 Flex Sig/CT Colonography Q 5 years 1998 RSV VACCINE (60+ or ) (1 - Risk 60-74 years 1-dose series) 2013 COLORECTAL SCREENING 07/27/2024 07/27/2014 Colorectal Cancer Screening 07/27/2024 INFLUENZA VACCINE (#1) 2024 , 02/15/2023, 02/23/2022, Additional history exists DTAP/TDAP/TD VACCINES (2 - T d or Tdap) 06/11/2027 06/11/2017 PNEUMOCOCCAL VACCINE 50+ YEARS Completed 1 , 07/07/2021, 06/27/2019, Additional history exists ZOSTER VACCINE Completed 03/21/2024, 01/04/2024 Procedures Procedure Name Priority Date/Time Associated Diagnosis Comments US CAROTID DOPPLER Routine 11/30/2024 10 :56 AM CDT Carotid stenosis, asymptomatic, left from Last 3 Months Results * US CAROTID DOPPLER (11/30/2024 10:56 AM CDT) Anatomical Region Laterality Modality Neck Ultrasound 11/30/2024 10:1 4 AM CDT Narrative 11/30/2024 12:13 PM CDT [facility] Cerebrovascular Exam Carotid Duplex Patient: Karri Main Study ID: [id number] Gender: M : 1955 Age: 69 Race: CAU Height 188cm Study Date: 11/30/2024 Weight: 112.5kg Access. #: [id number] *Referring Physician:* Jayant Sosa M.D. *Ordering Physician:* Jayant Sosa M.D. *Precision Assembler Bench:* Adina Lin RVT Indications: Carotid stenosis. Study data: Study status: Routine. Procedure: A vascular evaluation was performed. Carotid duplex study was performed using real-time imaging coupled with Doppler flow analysis. Carotid duplex study. Complete study and Doppler flow study including spectral analysis, color and kim scale imaging. Birthdate: Patient birthdate: 1955. Age: Patient is 69year(s) old. Sex: gender: male. Height: 188cm. 74in. Weight: 112.5kg. : 248lb. Body mass index: BMI: 31.8kg/m^2. Body surface area: BSA: 2.45m^2. Study date: Study date: 11/30/2024. Study time: 10:14 AM. Patient status: Outpatient. Impressions 1. The bilateral vertebral arteries are patent with normal antegrade flow. 2. Study suggests mild atherosclerosis involving the right common carotid artery. 3. Study suggests mild atherosclerosis involving the right carotid artery bifurcation and the right internal carotid artery consistent with a 0-49% stenosis. 4. Appearance of <50% stenosis involving the right external carotid artery. 5. Study suggests mild atherosclerosis involving the left common carotid artery. 6. Study suggests moderate mixed calcified atherosclerosis involving the left carotid artery bifurcation and the left internal carotid artery consistent with a 70-99% stenosis. 7. Appearance of >=50% stenosis involving the left external carotid artery. Tables: Brachial pressures: +--------+ + + + ! !Right !Left !Max ! +--------+ + + + !Systolic!R(sys): 132mm Hg!L(sys): 136mm Hg!Max: 136mm Hg! +--------+ + + + Arterial flow: + +-----+----+ !Location !V sys!V ed! + +-----+----+ !Right CCA - proximal!109 !14.7! + +-----+----+ !Right CCA - distal !92.7 !10.4! + +-----+----+ !Right ICA - proximal!80.1 !17 ! + +-----+----+ !Right ICA - mid !101 !23 ! + +-----+----+ !Right ICA - distal !113 !26.1! + +-----+----+ !Right ECA !-114 !3.5 ! + +-----+----+ !Right vertebral !50.9 !9.2 ! + +-----+----+ !Left CCA - proximal !96.3 !9.3 ! + +-----+----+ !Left CCA - distal !93.2 !13.7! + +-----+----+ !Left ICA - proximal !303 !22 ! + +-----+----+ !Left ICA - mid !192 !41.2! + +-----+----+ !Left ICA - distal !95.9 !11.6! + +-----+----+ !Left ECA !217 !19.2! + +-----+----+ !Left vertebral !45.5 !13.3! + +-----+----+ *Velocities are expressed in cm/s, Diameters are expressed in cm Velocity ratios: + +-----+-----+ ! !R PSV!L PSV! + +-----+-----+ !Max ICA/distal CCA!1.22 !3.25 ! + +-----+-----+ Prepared and Electronically Authenticated Malissa Morillo [id number] Procedure Note Malissa Morillo MD - 11/30/2024 [facility] Cerebrovascular Exam Carotid Duplex Patient: Karri Main Study ID: [id number] Gender: M : 1955 Age: 69 Race: CAU Height 188cm Study Date: 11/30/2024 Weight: 112.5kg Access. #: [id number] *Referring Physician:* Jayant Sosa M.D. *Ordering Physician:* Jayant Sosa M.D. *Precision Assembler Bench:* Adina Lin RVT Indications: Carotid stenosis. Study data: Study status: Routine. Procedure: A vascular evaluationwas performed. Carotid duplex study was performed using real-time imagingcoupled with Doppler flow analysis. Carotid duplex study. Complete studyand Doppler flow study including spectral analysis, color and kim scaleimaging. Birthdate: Patient birthdate: 1955. Age: Patient is 69year(s)old. Sex: gender: male. Height: 188cm. 74in. Weight: 112.5kg. :248lb. Body mass index: BMI: 31.8kg/m^2. Body surface area: BSA: 2.45m^2.Study date: Study date: 11/30/2024. Study time: 10:14 AM. Patient status: Outpatient. Impressions 1. The bilateral vertebral arteries are patent with normal antegradeflow. 2. Study suggests mild atherosclerosis involving the right commoncarotid artery. 3. Study suggests mild atherosclerosis involving the right carotidartery bifurcation and the right internal carotid artery consistent with a0-49% stenosis. 4. Appearance of <50% stenosis involving the right external carotidartery. 5. Study suggests mild atherosclerosis involving the left common carotid artery. 6. Study suggests moderate mixed calcified atherosclerosis involving theleft carotid artery bifurcation and the left internal carotid arteryconsistent with a 70-99% stenosis. 7. Appearance of >=50% stenosis involving the left external carotidartery. Tables: Brachial pressures: +--------+ + + + ! !Right !Left !Max ! +--------+ + + + !Systolic!R(sys): 132mm Hg!L(sys): 136mm Hg!Max: 136mm Hg! +--------+ + + + Arterial flow: + +-----+----+ !Location !V sys!V ed! + +-----+----+ !Right CCA - proximal!109 !14.7! + +-----+----+ !Right CCA - distal !92.7 !10.4! + +-----+----+ !Right ICA - proximal!80.1 !17 ! + +-----+----+ !Right ICA - mid !101 !23 ! + +-----+----+ !Right ICA - distal !113 !26.1! + +-----+----+ !Right ECA !-114 !3.5 ! + +-----+----+ !Right vertebral !50.9 !9.2 ! + +-----+----+ !Left CCA - proximal !96.3 !9.3 ! + +-----+----+ !Left CCA - distal !93.2 !13.7! + +-----+----+ !Left ICA - proximal !303 !22 ! + +-----+----+ !Left ICA - mid !192 !41.2! + +-----+----+ !Left ICA - distal !95.9 !11.6! + +-----+----+ !Left ECA !217 !19.2! + +-----+----+ !Left vertebral !45.5 !13.3! + +-----+----+ *Velocities are expressed in cm/s, Diameters are expressed in cm Velocity ratios: + +-----+-----+ ! !R PSV!L PSV! + +-----+-----+ !Max ICA/distal CCA!1.22 !3.25 ! + +-----+-----+ Prepared and Electronically Authenticated Malissa Morillo [id number] us Jayant Sosa MD ORDERABLES Final Result from Last 3 Months Insurance [employer] PPO MCR Care Teams Kier Pleater Relationship Specialty Start Date End Date Scott Tello MD [address] [place] [address] PCP - General Internal Medicine 04/21/18
== END 2024-12-25 12:26 | disposition home or self-care (01) ==
PROVIDERS: PCP Internal Medicine
DX: J01.90 Acute sinusitis, unspecified (principal); Z79.82 Long term (current) use of aspirin
CPT/HCPCS: 71046; 93005; 99213; G0463